=== PATIENT | male | born 1970 | race Caucasian/White ===

== ENCOUNTER 2018-11-13 10:10 | Inpatient (IN) | payer OTHER ==
[~2018-11-13] VITALS: Ht 177.8 cm; Wt 63.5 kg
[2018-11-13 10:19] VITALS: BP 104/59
[2018-11-13] MEDS ORDERED: TAMS0.4C97 PO (10:33)
[2018-11-13] MEDS ORDERED: GLIP5TAB4 PO (10:33)
[2018-11-13] MEDS ORDERED: LISI-420 PO (10:33)
[2018-11-13] MEDS ORDERED: METF500T PO (10:33)
--- NOTE | 2018-11-13 10:40 | NUR ---
PT BIB FAMILTY C/O ABD PAIN AND N/V/D X 4 DAYS. PT REPORTS NON RADIATING EPIGASTRIC CRAMPING AT 8/10 THAT IS INCREASED WITH WALKING OR STANDING AND DECREASES WHEN LAYING DOWN. ABD PAIN IS ALSO ACCOMPANIED WITH N/V/D. ABD IS SOFT, FLAT, TEBDER TO TOUCH IN EPIGASTRIC REGION AND BOWEL SOUNDS ACTIVE IN ALL 4 QUADRANTS. PT DENIES FEVER OR SICK CONTACTS AT HOME. PT WENT TO CLINIC ON THURSDAY AND GIVEN ABX, TOLD TO RETURN IF SYMPTOMS INCREASED. PT WENT TO CLINIC TODAY AND WAS REFERRED TO ER. VSS. ER TO SEE PT. MEDHX:CHRONIC DIARRHA, DM RX:Z PACK
[2018-11-13] MEDS ORDERED: NACL 0.9% 1,000 ML IV ONE ×2 (10:54→13:50)
[2018-11-13] MEDS ORDERED: ONDANSETRON 4 MG/2 ML VIAL IVP ONE ×2 (10:55→13:10)
[2018-11-13] MEDS ORDERED: MORPHINE SULFATE 4 MG/ML SYR IVP ONE (10:55)
[2018-11-13 11:30] LABS: BASOPHILS % (AUTO) 0.1 % (0.0-2.0); EOSINOPHILS % (AUTO) 0.1 % (0.0-4.0); HEMATOCRIT 38.4 % (36-52); HEMOGLOBIN 12.3 g/dL (12.0-18.0); LYMPHOCYTES # (AUTO) 0.4 K/uL (2.0-11.5); LYMPHOCYTES % (AUTO) 1.8 % (20.5-51.1); MEAN CORPUSCULAR HEMOGLOBIN 26 pg (27-31); MEAN CORPUSCULAR HGB CONC 32 g/dL (33-37); MEAN CORPUSCULAR VOLUME 80.4 fL (80-94); MONOCYTES # (AUTO) 1.6 K/uL (0.8-1.0); MONOCYTES % (AUTO) 7.2 % (1.7-9.3); NEUTROPHILS # (AUTO) 20.1 K/uL (1.8-7.7); NEUTROPHILS % (AUTO) 90.8 % (42.2-75.2); PLATELET COUNT (AUTO) 397 K/uL (140-450); RED BLOOD CELL COUNT(AUTO) 4.77 MIL/uL (4.20-6.10); RED CELL DISTRIBUTION WIDTH 14.3 % (11.6-13.7)
[2018-11-13 11:39] LABS: ANION GAP 15.5 (8-16); CARBON DIOXIDE 26.4 mmol/L (21-32); CREATININE 2.2 mg/dL (0.7-1.3); POTASSIUM 4.9 mmol/L (3.5-5.1)
[2018-11-13 11:41] LABS: APPEARANCE,URINE CLOUDY (CLEAR); BILIRUBIN,URINE 2+ (NEGATIVE); BLOOD, URINE TRACE-I (NEGATIVE); COLOR,URINE YELLOW (YELLOW); LEUKOCYTE ESTERASE ,URINE NEGATIVE (NEGATIVE); NITRITE, URINE NEGATIVE (NEGATIVE); UGLUCOSE NEGATIVE (NEGATIVE)
[2018-11-13 11:44] LABS: ALBUMIN 3.3 g/dL (3.4-5.0); TOTAL BILIRUBIN 1.1 mg/dL (0.0-1.0)
[2018-11-13 11:53] LABS: WHITE BLOOD COUNT (AUTO) 22.1 K/uL (4.8-10.8)
--- NOTE | 2018-11-13 11:56 | NUR ---
PT IS RESTING IN BED FAMILY AT BEDSIDE, AROUSABLE TO NAME. PT DENIES NAUSEA AT THIS TIME, REPORTS THAT PAIN IS AT 2/10. VSS.
[2018-11-13 11:57] LABS: RBC,URINE 0-5 /HPF (0-5); WBC,URINE 0-5 /HPF (0-5)
[2018-11-13 11:58] LABS: COARSE GRANULAR CASTS,URINE 0-10 /LPF (None Seen); URINE AMORPHOUS URATE 4+ /HPF (None Seen)
[2018-11-13] MEDS ORDERED: metroNIDAZOLE 500 MG/NS PREMIX 100 ML IV ONE (13:10)
[2018-11-13] MEDS ORDERED: cefTRIAXone 1,000 MG VIAL ONE (13:25)
[2018-11-13] MEDS ORDERED: KETOROLAC 30 MG/ML VIAL IVP ONE (13:50)
--- NOTE | 2018-11-13 13:56 | NUR ---
PER ADMITTING, PT TO BE ADMITTED TO ON-CALL RESIDENTS. RN RILEY AND MADE AWARE.
[2018-11-13] MEDS ORDERED: ACETAMINOPHEN 325 MG TAB PO PRN (14:05)
[2018-11-13] MEDS ORDERED: HYDROcodone/APAP 7.5/325 MG 1 TAB PO PRN (14:05)
[2018-11-13] MEDS ORDERED: ONDANSETRON 4 MG/2 ML VIAL IVP PRN (14:05)
[2018-11-13] MEDS ORDERED: DEXTROSE 50% 50 ML SYR IVP PRN (14:15)
[2018-11-13] MEDS ORDERED: INSULIN LISPRO SLIDING SCALE 100 UNITS/ML VIAL SUBQ PRN (14:15)
[2018-11-13 14:35] VITALS: BP 120/73
--- NOTE | 2018-11-13 14:35 | NUR ---
REPORT FROM GILDA, ER NURSE. PATIENT ON TELE MONITOR WITH STANDARD PRECAUTIONS IN PLACE. PATIENT AAOX4, ON ROOM AIR, NO DISTRESS NOTED. PATIENT AMBULATORY, CONTINENT, AND SKIN INTACT. IV ON R AC 20G INFUSING NS AT 100, IV PATENT AND INTACT. BED IN LOW POSITION, CALL LIGHT WITHIN REACH, SIDE RAILS X2 UP
--- NOTE | 2018-11-13 14:35 | NUR ---
Patient will be admitted to care of [facility]. Admited to TELE VIA GURIMANI W/ VSS. Will go to room 119B. Belongings list completed. Report to JILLIAN HILTON.
[2018-11-13] MEDS: NACL 0.9% 1,000 ML IV SCH (14:51)
[2018-11-13 14:58] LABS: BARBITURATE, URINE NEG. ng/ml (NEG <=200); BENZODIAZEPINE, URINE NEG. ng/mL (NEG <=200); CANNABINOID, URINE NEG. ng/mL (NEG <=50); COCAINE, URINE NEG. ng/mL (NEG <=300); OPIATE, URINE NEG. ng/mL (NEG <=2000); PHENCYCLIDINE SCREEN,URINE NEG. ng/mL (NEG <=25)
[2018-11-13 14:59] LABS: CHOL/HDL RATIO 3.6 (1-4.5); FREE T4 (FREE THYROXINE) 1.51 ng/dL (0.76-1.46); PHOSPHORUS 2.9 mg/dL (2.5-4.9); THYROID STIMULATING HORMONE 1.5 uIU/mL (0.34-3.74)
--- NOTE | 2018-11-13 15:39 | NUR ---
PATIENT LYING COMFORTABLY IN BED, ON ROOM AIR, NO DISTRESS NOTED
[2018-11-13 16:00] VITALS: BP 133/75
[2018-11-13] MEDS: BLOOD GLUCOSE MONITORING 1 DEV DEV FS SCH ×2 (16:21→21:33)
[2018-11-13] MEDS: glipiZIDE 5 MG TAB PO SCH (16:53)
[2018-11-13 17:18] LABS: ALBUMIN 2.6 g/dL (3.4-5.0); BILIRUBIN,DIRECT 0.5 mg/dL (0.0-0.3); TOTAL BILIRUBIN 0.7 mg/dL (0.0-1.0)
--- NOTE | 2018-11-13 17:26 | NUR ---
PATIENT SLEEPING, ON ROOM AIR, NO DISTRESS NOTED
[2018-11-13] MEDS: PIPER/TAZO 2.25GM/D5W PREMIX 50 ML IV SCH ×2 (17:33→23:49)
--- NOTE | 2018-11-13 17:37 | NUR ---
ADMINISTERED SCHEDULED MED. PATIENT TOLERATED WELL
--- NOTE | 2018-11-13 17:45 | NUR ---
After speaking with the patient admitting has determined that the patient's PCP is Dr. Silva, I called his after hours service and requested for a call back to determine if him or his medical group would be coming in to see this patient or if we should have the on-call physicians take care of the patient. I was advised by the answering service that an on-call nurse would be calling me back. Royce Serna [employer]
--- NOTE | 2018-11-13 18:13 | NUR ---
PATIENT PICKED UP FOR HIDA SCAN BY ALEAH FROM [facility]
--- NOTE | 2018-11-13 18:21 | NUR ---
Spoke with Dr Silva who agreed to allow the the on-call physician to take care of the patient.
--- NOTE | 2018-11-13 19:09 | NUR ---
BEDSIDE REPORT GIVEN TO YOBANI PRINCE. PATIENT CURRENTLY HAVING HIDA SCAN DONE WITH [facility]. ENDORSED TO NURSE ABOUT POSSIBLE NEED TO ADMINISTER MORPHINE IF SHE IS CALLED BY ALEAH FROM [facility]
--- NOTE | 2018-11-13 19:10 | NUR ---
RECEIVED REPORT FROM NORA NURSE. PT CURRENTLY OFF FLOOR AND AT [facility] FOR H[facility] SCAN.
--- NOTE | 2018-11-13 19:20 | NUR ---
NOTIFIED AUGUST THAT ALEAH FROM [facility] CALLED AND PATIENT WILL NEED [address] THOMAS NOTIFIED WELL AND WILL PUT IN ORDER
--- NOTE | 2018-11-13 19:42 | NUR ---
WENT TO [facility] AND ADMINISTERED MORPHINE PER ORDERS.
[2018-11-13] MEDS ORDERED: MORPHINE SULFATE 2 MG/ML SYR ONE (19:49)
[2018-11-13] MEDS ORDERED: MORPHINE SULFATE 2 MG/ML SYR IVP SCH (20:00)
[2018-11-13 20:59] VITALS: BP 128/65
[2018-11-13] MEDS ORDERED: PIPER/TAZO 3.375GM/D5W PREMIX 50 ML IV SCH (21:00)
[2018-11-13] MEDS ORDERED: metFORMIN 500 MG TAB PO SCH (21:00)
--- NOTE | 2018-11-13 21:29 | NUR ---
BLOOD GLUCOSE 92 AT THIS TIME. FLAGYL HUNG. PT AWAKE, ALERT AND ORIENTED X 4. ABLE TO VERBALIZE NEEDS. NO C/O DISCOMFORT. BREATHING EQUAL AND UNLABORED. RIGHT A/C 20 G INTACT AND INFUSING WELL. SAFETY MEASURES IN PLACE. CALL LIGHT WITHIN REACH.
[2018-11-13] MEDS: DOCUSATE SODIUM 100 MG GELCAP PO SCH (21:41)
[2018-11-13] MEDS: metroNIDAZOLE 500 MG/NS PREMIX 100 ML IV SCH (21:42)
--- NOTE | 2018-11-13 23:49 | NUR ---
RADHIKA BRADEN. PT AWAKE LAYING IN BED. NO C/O DISCOMFORT. CALL LIGHT WITHIN REACH.
[2018-11-14] VITALS: BP 141/71
--- NOTE | 2018-11-14 | NUR ---
VITALS TAKEN. PT SLEEPING IN BED. EASILY AROUSABLE. BREATHING EQUAL AND UNLABORED. NO C/O PAIN
[2018-11-14] MEDS: NACL 0.9% 1,000 ML IV SCH ×2 (00:28→10:16)
--- NOTE | 2018-11-14 03:59 | NUR ---
ZOFRAN GIVEN. PT STATED HE VOMITTED.
[2018-11-14 04:01] VITALS: BP 139/65
[2018-11-14] MEDS: metroNIDAZOLE 500 MG/NS PREMIX 100 ML IV SCH ×2 (04:01→13:04)
[2018-11-14] MEDS: glipiZIDE 5 MG TAB PO SCH (06:34)
[2018-11-14] MEDS: PIPER/TAZO 2.25GM/D5W PREMIX 50 ML IV SCH ×2 (06:34→11:40)
--- NOTE | 2018-11-14 06:54 | NUR ---
CALLED LAB AND ASKED FOR LABS TO BE RUN STAT PER DR. WILD.
--- NOTE | 2018-11-14 07:15 | NUR ---
ENDORSED TO AM NURSE. CALLED LAB FOR SECOND TIME FOR STAT LABS. PT IN STABLE CONDITION.
--- NOTE | 2018-11-14 07:16 | NUR ---
RECEIVED ENDORSEMENT FROM [facility] NURSE AUGUST. PATIENT IS AAOX4, THAI SPEAKING. RESPIRATIONS ARE EVEN AND UNLABORED ON ROOM AIR. PATIENT DENIES ANY PAIN AT THIS TIME. RIGHT AC 20G IV INTACT, PATENT, AND INFUSING IVF. PLAN OF CARE WAS REVIEWED WITH PATIENT. PATIENT VERBALIZED UNDERSTANDING. SAFETY MEASURES IN PLACE, CALL LIGHT WITHIN REACH.
[2018-11-14 07:21] LABS: EOSINOPHILS % (AUTO) 0.3 % (0.0-4.0); HEMATOCRIT 31.4 % (36-52); HEMOGLOBIN 10.1 g/dL (12.0-18.0); LYMPHOCYTES # (AUTO) 0.5 K/uL (2.0-11.5); LYMPHOCYTES % (AUTO) 3.3 % (20.5-51.1); MEAN CORPUSCULAR HEMOGLOBIN 26 pg (27-31); MEAN CORPUSCULAR HGB CONC 32 g/dL (33-37); MEAN CORPUSCULAR VOLUME 80.3 fL (80-94); MONOCYTES # (AUTO) 1.3 K/uL (0.8-1.0); NEUTROPHILS # (AUTO) 14.3 K/uL (1.8-7.7); NEUTROPHILS % (AUTO) 88.4 % (42.2-75.2); PLATELET COUNT (AUTO) 361 K/uL (140-450); RED BLOOD CELL COUNT(AUTO) 3.92 MIL/uL (4.20-6.10); RED CELL DISTRIBUTION WIDTH 14.2 % (11.6-13.7); WHITE BLOOD COUNT (AUTO) 16.2 K/uL (4.8-10.8)
[2018-11-14] MEDS: BLOOD GLUCOSE MONITORING 1 DEV DEV FS SCH ×2 (07:31→12:03)
[2018-11-14 07:50] LABS: MAGNESIUM 1.9 mg/dL (1.8-2.4); PHOSPHORUS 2.7 mg/dL (2.5-4.9)
[2018-11-14 07:51] LABS: ALBUMIN 2.5 g/dL (3.4-5.0); ANION GAP 15.7 (8-16); CARBON DIOXIDE 24.6 mmol/L (21-32); CREATININE 1.9 mg/dL (0.7-1.3); POTASSIUM 4.3 mmol/L (3.5-5.1); TOTAL BILIRUBIN 1.1 mg/dL (0.0-1.0)
[2018-11-14 08:00] VITALS: BP 155/72
--- NOTE | 2018-11-14 08:05 | NUR ---
CALLED DR. WILD TO NOTIFY HIM OF PATIENT'S LABS. DR. WILD STATED THAT PATIENT OK TO HAVE SURGERY. CALLED OR TO LET THEM KNOW WELL.
[2018-11-14] MEDS: DOCUSATE SODIUM 100 MG GELCAP PO SCH (08:23)
[2018-11-14] MEDS ORDERED: LACTOBACILLUS RHAMNOSUS GG 1 EACH CAP PO SCH (09:00)
[2018-11-14] MEDS ORDERED: PANTOPRAZOLE 40 MG INJ VIAL IVP SCH (09:00)
[2018-11-14] MEDS ORDERED: LISINOPRIL 20 MG TAB PO SCH (09:00)
[2018-11-14] MEDS ORDERED: cefTRIAXone 1,000 MG in LIDOCAINE MPF 1% - 5 mL VIAL 2.1 ML IM SCH (09:00)
--- NOTE | 2018-11-14 09:08 | NUR ---
PATIENT HAS BEEN SCREENED AND CATEGORIZED HIGH NUTRITION RISK. PATIENT WILL BE SEEN WITHIN 1-2 DAYS OF ADMISSION. 11/14/[address]
--- NOTE | 2018-11-14 10:15 | NUR ---
PATIENT RESTING. DENIES PAIN. FAMILY AT BEDSIDE. PATIENT STATES THAT HE VOMITED X3. REFUSES ANY MEDICATION AT THIS TIME. NO OTHER NEEDS AT THIS TIME.
--- NOTE | 2018-11-14 11:40 | NUR ---
ADMINISTERED SCHEDULED MEDICATIONS. PATIENT DENIES ANY PAIN AT THIS TIME. NO OTHER NEEDS AT THIS TIME.
[2018-11-14 12:00] VITALS: BP 144/55
--- NOTE | 2018-11-14 13:00 | NUR ---
COLLECTED STOOL SAMPLE AND SEND TO LAB. NO OTHER NEEDS AT THIS TIME, WILL CONTINUE TO MONITOR.
--- NOTE | 2018-11-14 13:52 | NUR ---
11/14/18 RD INITIAL ASSESSMENT COMPLETED PLEASE REFER TO NUTRITION ASSESSMENT UNDER CARE ACTIVITY FOR ESTIMATED NUTRITIONAL NEEDS. RD RECOMMENDATIONS: 1. RECOMMEND ADVANCE DIET TOLERATED TO LOW FAT. 2. RD WILL F/U 2-3 DAYS; HIGH RISK. DONG CARTER, RD
[2018-11-14] MEDS ORDERED: PIPE1PDS26 IV (14:55)
[2018-11-14] MEDS ORDERED: METR500S14 IV (14:56)
--- NOTE | 2018-11-14 15:31 | NUR ---
REMOVED IV, CANNULA INTACT WITH MINIMAL BLEEDING. PATIENT SIGNED AMA FORM, PHYSICIAN TALKED TO PATIENT. NO OTHER NEEDS AT THIS TIME.
--- NOTE | 2018-11-14 15:40 | NUR ---
WHEELED PATIENT OFF UNIT VIA WHEELCHAIR. ALL BELONGINGS LEFT WITH PATIENT. ID BANDS WERE REMOVED.PATIENT LEFT AMA AT THIS TIME.
[2018-11-14] MEDS ORDERED: METOCLOPRAMIDE 10 MG TAB PO SCH (16:30)
== END 2018-11-14 15:40 | disposition left against medical advice (07) | DRG 871 ==
LOC: MED 10:10 → MTU 14:13
PROVIDERS: ADMIT General Practice; ATTEND General Practice
DX: A41.9 Sepsis, unspecified organism (principal); N17.0 Acute kidney failure with tubular necrosis; E43 Unspecified severe protein-calorie malnutrition; K80.00 Calculus of gallbladder with acute cholecystitis without obstruction; I10 Essential (primary) hypertension; K52.9 Noninfective gastroenteritis and colitis, unspecified; E11.65 Type 2 diabetes mellitus with hyperglycemia; Z68.20 Body mass index [BMI] 20.0-20.9, adult; Z53.21 Procedure and treatment not carried out due to patient leaving prior to being seen by health care provider
CPT/HCPCS: 36415; 71045; 76705; 78445; 80053; 80076; 80305; 81001; 82140; 82150; 82948; 83036; 83605; 83690; 83735; 83880; 84100; 84439; 84443; 84484; 85025; 85610; 85730; 86886; 86900; 86901; 87015; 87040; 87081; 87086; 89055; 93925; 93970; 96365; 96375; 96376; 99285; A9510; C9113; J0696; J1815; J1885; J2270; J2405; J2543; J3490; J7030; J7060; Q0092